=== PATIENT | female | born 1945 | race Caucasian/White ===

== ENCOUNTER 2018-06-05 14:57 | Outpatient (CLI) | payer MEDICARE, OTHER ==
--- NOTE | 2018-06-05 16:55 | Diagnostic Imaging Report ---
KATHLEEN SANTOS [facility] [address] [facility] [address] [id number] Report Submission Date: Jun 05, 2018 3:40:29 PM CDT Patient Study Name: HERSON FERNANDO Date: Jun 05, 2018 3:03:34 PM CDT Modality Type: DX Gender: F Description: LOWER EXTREMITY : 47 Institution: [facility] Physician: KATHLEEN SANTOS Left knee AP lateral sunrise Findings: There is mild joint space narrowing. No fracture or joint effusion is identified. Bone density is normal Impression: Mild degenerative arthritis with no acute bony pathology Electronically signed on Jun 05, 2018 3:40:29 PM CDT by: Solo CAM
== END 2018-06-05 15:00 ==
LOC: RAD 14:57
PROVIDERS: ATTEND Family Medicine
DX: S80.02XA Contusion of left knee, initial encounter (principal); S86.812A Strain of other muscle(s) and tendon(s) at lower leg level, left leg, initial encounter; X58.XXXA Exposure to other specified factors, initial encounter; Y92.9 Unspecified place or not applicable; Y93.9 Activity, unspecified; Y99.9 Unspecified external cause status
CPT/HCPCS: 73562